=== PATIENT | female | born 1990 | race Caucasian/White ===

== ENCOUNTER → 2020-06-30 | Outpatient (CLI) | payer OTHER ==
[~2020-06-30] MED LIST: ZOFRAN ODT 4 MG4 MG SL
== END ==
LOC: HEART 5 09:30
DX: R00.2 Palpitations (principal); I08.1 Rheumatic disorders of both mitral and tricuspid valves
CPT/HCPCS: 93306

== ENCOUNTER 2020-07-27 13:25 | Emergency (ER) | payer OTHER ==
[2020-07-27 14:48] LABS: HEMOGLOBIN 13.8 gm/dl (12.3-15.3); RED BLOOD COUNT 4.65 M/UL (4.00-5.10); WHITE BLOOD COUNT 4.9 K/UL (4.5-11.0)
[2020-07-27 15:11] LABS: BUN/CREATININE RATIO 15 (0-10)
[2020-07-27] MEDS ORDERED: ZOFRAN ODT 4 MG4 MG SL (16:09)
== END 2020-07-27 17:03 | disposition home or self-care (01) ==
LOC: ER1 13:25
PROVIDERS: Emergency Medicine
DX: U07.1 COVID-19 (principal); Z88.2 Allergy status to sulfonamides
CPT/HCPCS: 71045; 80053; 81001; 82550; 82553; 83874; 84484; 84703; 85025; 96374; 99284; J2405; J7030

== ENCOUNTER 2021-02-14 17:23 | Emergency (ER) | payer OTHER | END 2021-02-14 20:30 | disposition left against medical advice (07) | LOC: ER1 17:23 | DX: Z53.21 Procedure and treatment not carried out due to patient leaving prior to being seen by health care provider (principal) ==

== ENCOUNTER 2021-04-12 11:48 | Observation (INO) | payer OTHER ==
[~2021-04-12] VITALS: Ht 167.6 cm; Wt 111.1 kg
[2021-04-12 13:17] LABS: HEMOGLOBIN 14.6 gm/dl (12.3-15.3); WHITE BLOOD COUNT 20.9 K/UL (4.5-11.0)
[2021-04-12 16:49] LABS: BUN/CREATININE RATIO 26 (0-10)
[2021-04-12] MEDS ORDERED: ESCITALOPRAM OX10 MG PO (18:45)
[2021-04-12] MEDS ORDERED: VITAMIN D21250 MCG PO (18:45)
[2021-04-12] MEDS ORDERED: FISH OIL 1,0001 EACH PO (18:46)
[2021-04-12] MEDS ORDERED: METFORMIN HCL1000 MG PO (18:46)
[2021-04-12] MEDS ORDERED: MULTI-VITAMIN1 EACH PO (18:47)
[2021-04-12] MEDS ORDERED: HYDROXYZINE HCL25 MG PO (18:47)
[2021-04-12] MEDS ORDERED: ASPIRIN EC81 MG PO (18:48)
[2021-04-13 05:22] LABS: HEMOGLOBIN 12.3 gm/dl (12.3-15.3); RED BLOOD COUNT 4.23 M/UL (4.00-5.10); WHITE BLOOD COUNT 8.6 K/UL (4.5-11.0)
[2021-04-13] MEDS ORDERED: CRESTOR 10 MG T10 MG PO (07:17)
== END 2021-04-13 12:45 | disposition home or self-care (01) ==
LOC: ER1 11:48 → CCU 18:14 → CDU 18:14 → CCU 20:19
PROVIDERS: Nurse Practitioner; ADMIT Internal Medicine
DX: R11.2 Nausea with vomiting, unspecified (principal); E11.65 Type 2 diabetes mellitus with hyperglycemia; D72.829 Elevated white blood cell count, unspecified; D68.51 Activated protein C resistance; E86.0 Dehydration; I10 Essential (primary) hypertension; Z20.822 Contact with and (suspected) exposure to COVID-19; Z86.16 Personal history of COVID-19; Z88.2 Allergy status to sulfonamides; Z79.84 Long term (current) use of oral hypoglycemic drugs; Z79.82 Long term (current) use of aspirin; Z79.899 Other long term (current) drug therapy
CPT/HCPCS: 0240U; 80053; 81001; 82009; 82150; 82803; 82962; 84703; 85025; 85027; 96372; 96374; 96375; 99285; G0378; J0696; J1650; J2405; Q0177; Q9967